=== PATIENT | male | born 1990 | race Caucasian/White ===

== ENCOUNTER 2021-06-27 09:19 | Emergency (ER) | payer BC, MEDICAID ==
[~2021-06-27] VITALS: Ht 167.6 cm; Wt 91.0 kg
[2021-06-27 09:34] VITALS: BP 149/87
[2021-06-27] MEDS ORDERED: TOPUD PO (09:40)
[2021-06-27] MEDS ORDERED: IBUP-2029 MT (10:16)
[2021-06-27] MEDS ORDERED: ACET650T37 MT (10:16)
== END 2021-06-27 11:30 | disposition home or self-care (01) ==
LOC: ER 09:19
DX: R20.2 Paresthesia of skin (principal); Z88.0 Allergy status to penicillin
CPT/HCPCS: 93005; 99283

== ENCOUNTER 2022-01-17 16:36 | Emergency (ER) | payer BC, MEDICAID ==
[~2022-01-17] VITALS: Ht 185.4 cm; Wt 183.0 kg
[~2022-01-17 16:36] MED LIST: ACET-3163 MT; IBUP-2029 MT; TOPUD PO
[2022-01-17] MEDS ORDERED: KETOROLAC 30MG/ML VIAL IV STA (18:25)
[2022-01-17] MEDS ORDERED: SODIUM CHLORIDE 0.9% 1,000 ML IV ONE (18:30)
[2022-01-17 18:39] VITALS: BP 130/87
[2022-01-17 19:09] LABS: CHLORIDE 103 mEq/L (98-107)
[2022-01-17 19:11] LABS: BASOPHILS % 0.2 % (0.0-2.0); EOSINOPHILS % 0.1 % (0.0-5.0); HEMATOCRIT. 47.7 % (42.0-52.0); HEMOGLOBIN. 16.2 g/dL (14.0-18.0); LYMPHOCYTES % 13.7 % (20.0-50.0); MEAN CORPUSCULAR HEMOGLOBIN 28.7 pg (28.0-32.0); MEAN CORPUSCULAR VOLUME 84.5 fL (80.0-94.0); MEAN PLATELET VOLUME 9.4 fl (7.4-10.4); MONOCYTES % 11.9 % (2.0-8.0); NEUTROPHILS % 74.1 % (40.0-76.0); PLATELET 231 x1000/uL (130-400); RED BLOOD CELL COUNT 5.64 mill/uL (4.7-6.1); RED CELL DISTRIBUTION WIDTH 13.8 % (11.6-14.6)
== END 2022-01-17 21:59 | disposition home or self-care (01) ==
LOC: ER 16:36
DX: U07.1 COVID-19 (principal); E86.0 Dehydration; R00.0 Tachycardia, unspecified; Z88.0 Allergy status to penicillin
CPT/HCPCS: 36415; 71045; 80053; 84484; 85025; 93005; 96361; 96374; 99285; J1885; J7030

== ENCOUNTER 2022-08-03 13:47 | Emergency (ER) | payer MEDICAID, OTHER ==
[~2022-08-03] VITALS: Ht 167.6 cm; Wt 82.0 kg
[2022-08-03 14:00] VITALS: BP 137/86
[2022-08-03 17:06] LABS: BASOPHILS % 0.5 % (0.0-2.0); EOSINOPHILS % 1.4 % (0.0-5.0); HEMATOCRIT. 49.2 % (42.0-52.0); HEMOGLOBIN. 16.5 g/dL (14.0-18.0); LYMPHOCYTES % 21.5 % (20.0-50.0); MEAN CORPUSCULAR HEMOGLOBIN 28.5 pg (28.0-32.0); MEAN CORPUSCULAR VOLUME 85.1 fL (80.0-94.0); MONOCYTES % 5.4 % (2.0-8.0); NEUTROPHILS % 71.2 % (40.0-76.0); PLATELET 244 x1000/uL (130-400); RED BLOOD CELL COUNT 5.78 mill/uL (4.7-6.1); RED CELL DISTRIBUTION WIDTH 13.9 % (11.6-14.6)
[2022-08-03 17:15] LABS: CHLORIDE 105 mEq/L (98-107)
[2022-08-03 17:21] LABS: ETHANOL BLOOD < 10 mg/dL; PHOSPHORUS 3.3 mg/dL (2.5-4.9)
[2022-08-03 17:30] LABS: T4 FREE 1.19 ng/dL (0.76-1.46)
[2022-08-03 19:18] LABS: CLARITY URINE CLEAR (CLEAR); COLOR URINE YELLOW (YELLOW); KETONES URINE 1+ (NEGATIVE); LEUKOCYTE ESTERASE URINE NEGATIVE (NEGATIVE); NITRITE URINE NEGATIVE (NEGATIVE); OCCULT BLOOD URINE NEGATIVE (NEGATIVE); PH URINE 5.5 (4.5-8.0); PROTEIN URINE NEGATIVE (NEGATIVE); SPECIFIC GRAVITY URINE 1.019 (1.005-1.030); UROBILINOGEN URINE 0.2 E.U./dL (0.2-1.0)
[2022-08-03 19:42] LABS: *AMPHETAMINES SCREEN URINE NEGATIVE (NEGATIVE); *BARBITURATES SCREEN URINE NEGATIVE (NEGATIVE); *BENZODIAZEPINES SCREEN URINE NEGATIVE (NEGATIVE); *COCAINE SCREEN URINE NEGATIVE (NEGATIVE); CANNABINOID URINE SCREEN NEGATIVE (NEGATIVE); METHADONE URINE SCREEN NEGATIVE (NEGATIVE); OPIATES URINE SCREEN NEGATIVE (NEGATIVE); PHENCYCLIDINE URINE SCREEN NEGATIVE (NEGATIVE)
== END 2022-08-03 19:11 | disposition home or self-care (01) ==
LOC: ER 13:52
DX: G44.209 Tension-type headache, unspecified, not intractable (principal); F41.9 Anxiety disorder, unspecified; Z88.0 Allergy status to penicillin
CPT/HCPCS: 36415; 80053; 80305; 80320; 81003; 83735; 84100; 84439; 84443; 84481; 85025; 99284; G0480

== ENCOUNTER 2023-11-28 22:05 | Emergency (ER) | payer MEDICAID ==
[~2023-11-28] VITALS: Ht 167.6 cm; Wt 95.0 kg
[~2023-11-28 22:05] MED LIST changes: -ACET-3163 MT; +ESCI-7 PO; -IBUP-2029 MT; +MELO-104 PO; +OMEP20CA14 PO; -TOPUD PO
[2023-11-28 22:14] VITALS: O2SAT 100
[2023-11-28 23:37] LABS: HEMATOCRIT. 43.7 % (42.0-52.0); MEAN CORPUSCULAR HEMOGLOBIN 28.5 pg (28.0-32.0); MEAN CORPUSCULAR HGB CONC 34.3 g/dL (31.0-37.0); MEAN PLATELET VOLUME 9.1 fl (7.4-10.4); PLATELET 204 x1000/uL (130-400); RED BLOOD CELL COUNT 5.27 mill/uL (4.7-6.1); RED CELL DISTRIBUTION WIDTH 14.1 % (11.6-14.6); WHITE BLOOD COUNT 7.2 x1000/uL (4.5-11.0)
[2023-11-29 00:08] LABS: PROTHROMBIN TIME 11.4 sec (9.6-11.0)
[2023-11-29 00:10] LABS: DIFFERENTIAL COMMENT 1
[2023-11-29] MEDS: SODIUM CHLORIDE 0.9% 1000ML BAG (SEPSIS BOLUS) IV ONE (00:17)
[2023-11-29] MEDS: KETOROLAC 15MG/ML VIAL IV ONE (00:18)
[2023-11-29 00:50] LABS: CHLORIDE 106 mEq/L (98-107); POTASSIUM 3.7 mEq/L (3.5-5.1); SODIUM 137 mEq/L (136-145)
[2023-11-29 00:51] LABS: CALCIUM 8.7 mg/dL (8.7-10.4); CARBON DIOXIDE 24 mEq/L (21-32)
[2023-11-29 00:56] LABS: GLUCOSE 85 mg/dL (70-105); UREA NITROGEN BLOOD 11 mg/dL (9-23)
[2023-11-29 00:57] LABS: ETHANOL BLOOD < 10 mg/dL (<10); TROPONIN I HIGH SENSITIVITY < 4 ng/L (3.0-53)
[2023-11-29] MEDS ORDERED: ACET-2708 MT (01:31)
[2023-11-29 02:29] VITALS: BP 123/77; PULSE 90; RESP 12; TEMP 98.2
[2023-11-29 05:47] LABS: PLATELET ESTIMATE NORMAL
== END 2023-11-29 02:43 | disposition home or self-care (01) ==
LOC: ER 22:05
DX: B34.9 Viral infection, unspecified (principal); R00.0 Tachycardia, unspecified; R51.9 Headache, unspecified
CPT/HCPCS: 83605; 85025; 85610; 87040; 36415 ×2; 71045; 93005; 99285; 80048; 80320; 83690; 84484; 96361; 96374; J7030; J1885; G0480

== ENCOUNTER 2023-12-18 21:22 | Emergency (ER) | payer MEDICAID ==
[~2023-12-18] VITALS: Ht 170.2 cm; Wt 93.0 kg
[~2023-12-18 21:22] MED LIST changes: +ACET-2708 MT
[2023-12-18 22:06] VITALS: BP 139/98; TEMP 98.4; O2SAT 99
[2023-12-18 22:58] LABS: BASOPHILS % 0.7 % (0.0-2.0); EOSINOPHILS % 2.4 % (0.0-5.0); HEMATOCRIT. 46.3 % (42.0-52.0); HEMOGLOBIN. 15.5 g/dL (14.0-18.0); LYMPHOCYTES % 26.1 % (20.0-50.0); MEAN CORPUSCULAR HEMOGLOBIN 28.5 pg (28.0-32.0); MEAN CORPUSCULAR HGB CONC 33.5 g/dL (31.0-37.0); MEAN CORPUSCULAR VOLUME 85.1 fL (80.0-94.0); MONOCYTES % 7.1 % (2.0-8.0); NEUTROPHILS % 63.7 % (40.0-76.0); PLATELET 261 x1000/uL (130-400); RED BLOOD CELL COUNT 5.44 mill/uL (4.7-6.1); RED CELL DISTRIBUTION WIDTH 14.7 % (11.6-14.6); WHITE BLOOD COUNT 9.7 x1000/uL (4.5-11.0)
[2023-12-18 23:05] LABS: CHLORIDE 103 mEq/L (98-107); POTASSIUM 3.8 mEq/L (3.5-5.1); SODIUM 138 mEq/L (136-145)
[2023-12-18 23:06] LABS: CALCIUM 10.1 mg/dL (8.7-10.4); CARBON DIOXIDE 27 mEq/L (21-32)
[2023-12-18 23:11] LABS: CREATININE 0.9 mg/dL (0.6-1.3); GLUCOSE 96 mg/dL (70-105); UREA NITROGEN BLOOD 11 mg/dL (9-23)
[2023-12-18 23:12] LABS: TROPONIN I HIGH SENSITIVITY < 4 ng/L (3.0-53)
[2023-12-19 00:23] VITALS: PULSE 88; RESP 18
== END 2023-12-19 00:34 | disposition home or self-care (01) ==
LOC: ER 21:22
DX: R06.02 Shortness of breath (principal); F41.9 Anxiety disorder, unspecified; Z88.0 Allergy status to penicillin
CPT/HCPCS: 36415; 71045; 80048; 84484; 85025; 93005; 99285

== ENCOUNTER 2024-12-22 18:18 | Emergency (ER) | payer MEDICAID, OTHER ==
[~2024-12-22] VITALS: Ht 167.6 cm; Wt 95.0 kg
[2024-12-22 18:37] VITALS: O2SAT 99
[2024-12-22] MEDS: KETOROLAC 30MG/ML VIAL IM ONE (22:43)
[2024-12-22 22:57] LABS: CLARITY URINE CLEAR (CLEAR); COLOR URINE YELLOW (YELLOW); GLUCOSE URINE NEGATIVE (NEGATIVE); KETONES URINE TRACE (NEGATIVE); LEUKOCYTE ESTERASE URINE NEGATIVE (NEGATIVE); NITRITE URINE NEGATIVE (NEGATIVE); OCCULT BLOOD URINE NEGATIVE (NEGATIVE); PH URINE 5.5 (4.5-8.0); PROTEIN URINE NEGATIVE (NEGATIVE); SPECIFIC GRAVITY URINE 1.024 (1.005-1.030); UROBILINOGEN URINE 1.0 E.U./dL (0.2-1.0)
[2024-12-23 00:35] LABS: BASOPHILS % 0.4 % (0.0-2.0); EOSINOPHILS % 2.8 % (0.0-5.0); HEMATOCRIT. 44.9 % (42.0-52.0); HEMOGLOBIN. 15.2 g/dL (14.0-18.0); LYMPHOCYTES % 24.2 % (20.0-50.0); MEAN PLATELET VOLUME 9.1 fl (7.4-10.4); MONOCYTES % 7.2 % (2.0-8.0); NEUTROPHILS % 65.4 % (40.0-76.0); PLATELET 240 x1000/uL (130-400); RED BLOOD CELL COUNT 5.35 mill/uL (4.7-6.1); RED CELL DISTRIBUTION WIDTH 13.7 % (11.6-14.6)
[2024-12-23 01:06] LABS: CREATININE 1.0 mg/dL (0.6-1.3); UREA NITROGEN BLOOD 11 mg/dL (9-23)
[2024-12-23 01:08] LABS: ASPARTATE AMINOTRANSFERASE 24 IU/L (<34)
[2024-12-23 01:09] LABS: BILIRUBIN TOTAL 0.6 mg/dL (0.1-1.0); PROTEIN TOTAL 7.6 g/dL (6.0-8.3)
[2024-12-23 01:41] VITALS: BP 137/98; PULSE 87; RESP 12; TEMP 36.7; O2SAT 98
== END 2024-12-23 01:45 | disposition home or self-care (01) ==
LOC: ER 18:18
DX: N50.819 Testicular pain, unspecified (principal); F41.9 Anxiety disorder, unspecified; Z79.899 Other long term (current) drug therapy; Z88.0 Allergy status to penicillin
CPT/HCPCS: 99285; 93976; 76770; 81003; 76870; 96372; 74176; 80053; 85025; 36415; J1885